=== PATIENT | female | born 1965 | race Caucasian/White ===

== ENCOUNTER 2023-03-13 03:05 | Emergency (ER) | payer OTHER ==
[~2023-03-13] VITALS: Ht 144.8 cm; Wt 59.0 kg
[2023-03-13 03:17] VITALS: BP_SYST 122; PULSE 89; RESP 16; TEMP 97.6; O2SAT 99
[2023-03-13] MEDS ORDERED: ALBUTEROL SULFATE 0.083% 2.5 MG/3 ML VIAL.NEB INH ONE (03:45)
[2023-03-13] MEDS ORDERED: predniSONE 20 MG TABLET PO ONE (04:00)
[2023-03-13] MEDS ORDERED: MED4 PO (05:17)
[2023-03-13] MEDS ORDERED: NAPR-690 PO (05:17)
[2023-03-13] MEDS ORDERED: ALBMDI INH (05:20)
[2023-03-13 05:24] VITALS: BP_SYST 123; PULSE 50; RESP 17; TEMP 97.8; O2SAT 98
[2023-03-13] MEDS ORDERED: ACETAMINOPHEN 500 MG TABLET PO ONE (05:30)
[2023-03-13] MEDS ORDERED: KETOROLAC TROMETHAMINE 60 MG/2 ML VIAL IM ONE (05:30)
== END 2023-03-13 05:24 | disposition home or self-care (01) ==
LOC: SED 03:05
DX: J06.9 Acute upper respiratory infection, unspecified (principal); R05.9 Cough, unspecified; J02.9 Acute pharyngitis, unspecified; M79.10 Myalgia, unspecified site; Z79.899 Other long term (current) drug therapy
CPT/HCPCS: 99283; 94640; 96372; J7512; J1885